=== PATIENT | male | born 1980 | race Caucasian/White ===

== ENCOUNTER 2022-12-04 22:23 | Emergency (ER) | payer OTHER, BC ==
[~2022-12-04] VITALS: Ht 185.4 cm; Wt 90.7 kg
[2022-12-04 22:49] VITALS: BP 135/82
== END 2022-12-05 00:22 | disposition home or self-care (01) ==
LOC: ER 22:23
DX: S63.612A Unspecified sprain of right middle finger, initial encounter (principal); S63.614A Unspecified sprain of right ring finger, initial encounter; W22.8XXA Striking against or struck by other objects, initial encounter; Y92.89 Other specified places as the place of occurrence of the external cause; Y99.0 Civilian activity done for income or pay
CPT/HCPCS: 73130; 99283-25